=== PATIENT | female | born 1995 | race Caucasian/White ===

== ENCOUNTER 2016-11-09 18:56 | Emergency (ER) | payer MEDICAID ==
[2016-11-09 19:02] VITALS: BP 124/66
[2016-11-09] MEDS ORDERED: Albuterol/Ipratropium 3.0-0.5 MG/3 ML Neb Soln NEB ONE (19:21)
--- NOTE | 2016-11-09 19:27 | EDM.PDOC ---
ED HPI GENERAL MEDICAL PROBLEM - General Chief Complaint: Respiratory Problem Stated Complaint: CHEST PAINS, CAN'T BREATH,FEVER,CHILLS Time Seen by Provider: 11/09/16 19:24 Source of Information: Reports: Patient History Limitations: Reports: No Limitations - History of Present Illness INITIAL COMMENTS - FREE TEXT/NARRATIVE: few weeks h/o cough being Tx with Rx but not better. yesterday had f/c, Upper Chest Pain Score (Numeric/FACES): 7 - Related Data Allergies Allergy/AdvReac Type Severity Reaction Status Date / Time No Known Allergies Allergy Verified 11/09/16 18:59 Home Meds: Home Meds Loratadine [Claritin] 10 mg PO DAILY 08/31/14 [History] Fluticasone/Salmeterol [Advair 250-50 Diskus] 2 puff INH DAILY 11/09/16 [History ] Past Medical History HEENT History: Reports: None Cardiovascular History: Reports: None Respiratory History: Reports: Asthma Gastrointestinal History: Reports: None Genitourinary History: Reports: None EDUCATION REP History: Reports: Musculoskeletal History: Reports: None Neurological History: Reports: None Psychiatric History: Reports: None Endocrine/Metabolic History: Reports: None Hematologic History: Reports: None Immunologic History: Reports: None Oncologic (Cancer) History: Reports: None Dermatologic History: Reports: None - Infectious Disease History Infectious Disease History: Reports: Chicken Pox - Past Surgical History HEENT Surgical History: Reports: Tonsillectomy GI Surgical History: Reports: None Female Surgical History: Reports: None Endocrine Surgical History: Reports: None Musculoskeletal Surgical History: Reports: None Social & Family History - Family History Family Medical History: Noncontributory - Tobacco Use Smoking Status *Q: Never Smoker Second Hand Smoke Exposure: No - Caffeine Use Caffeine Use: Reports: Soda - Alcohol Use Days Per Week of Alcohol Use: 0 - Recreational Drug Use Recreational Drug Use: No ED ROS GENERAL - Review of Systems Review Of Systems: ROS reveals no pertinent complaints other than HPI. ED EXAM, GENERAL - Physical Exam Exam: See Below Exam Limited By: No Limitations General Appearance: Alert, WD/WN, Mild Distress, Other (cough spasms) Ears: Hearing Grossly Normal Throat/Mouth: Normal Voice, No Airway Compromise Head: Atraumatic Neck: Non-Tender, Full Range of Motion Respiratory/Chest: No Respiratory Distress, No Accessory Muscle Use, Decreased Breath Sounds, Rales, Rhonchi, Wheezing. No: Accessory Muscle Use, Retractions , Splinting Cardiovascular: Regular Rate, Rhythm GI/Abdominal: Soft, Non-Tender Neurological: Alert, Oriented, Normal Cognition, Normal Gait, No Motor/Sensory Deficits Psychiatric: Normal Affect, Normal Mood Skin Exam: Warm, Dry Lymphatic: No Adenopathy Course - Vital Signs Last Recorded V/S: Last Vital Signs Temp 36.6 C 11/09/16 19:01 Pulse 104 H 11/09/16 19:37 Resp 20 11/09/16 19:01 BP 124/66 11/09/16 19:01 Pulse Ox 98 11/09/16 19:01 - Orders/Labs/Meds Orders: Active Orders 24 hr Category Date Time Status RT Aerosol Therapy [RC] ASDIRECTED Care 11/09/16 19:22 Active Chest 2V [CR] Urgent Exams 11/09/16 19:21 Taken Meds: Medications Discontinued Medications Generic Name Dose Route Start Last Admin Trade Name Freq PRN Reason Stop Dose Admin Albuterol/Ipratropium 3 ml 11/09/16 19:21 11/09/16 19:28 Duoneb 3.0-0.5 Mg/3 Ml NEB 11/09/16 19:22 3 ml ONETIME ONE Administration Benzonatate 100 mg 11/09/16 19:36 11/09/16 19:39 Tessalon Perles PO 11/09/16 19:37 100 mg ONETIME ONE Administration - Re-Assessments/Exams Free Text/Narrative Re-Assessment/Exam: 11/09/16 20:09 results discussed with Pt. Departure - Departure Time of Disposition: 20:09 Disposition: Home, Self-Care 01 Condition: good Clinical Impression: Bronchospasm with bronchitis, acute - Discharge Information Instructions: Acute Bronchitis, [id number] Forms: ED Department Discharge Additional Instructions: 1) continue home meds and nebs 2) don't sleep flat at night 3) drink lots of liquids 4) follow up at clinic or recheck as needed rx given; tessalon pearles 100mg bid prn x 12 phenergan codeine syrup hs prn x 4oz - My Orders Last 24 Hours: My Active Orders 11/09/16 19:21 Chest 2V [CR] Urgent 11/09/16 19:22 RT Aerosol Therapy [RC] ASDIRECTED - Assessment/Plan Last 24 Hours: My Active Orders 11/09/16 19:21 Chest 2V [CR] Urgent 11/09/16 19:22 RT Aerosol Therapy [RC] ASDIRECTED
[2016-11-09] MEDS ORDERED: Benzonatate 100 MG Cap PO ONE (19:36)
[2016-11-09] MEDS ORDERED: Codeine/Promethazine 10-6.25 MG/5 ML Syrup 5 ML UD Cup ONE (20:12)
[2016-11-09] MEDS ORDERED: Codeine/Promethazine 10-6.25 MG/5 ML Syrup 5 ML UD Cup PO ONE (20:12)
== END 2016-11-09 20:16 | disposition home or self-care (01) ==
LOC: DL.ED 18:56
DX: J20.9 Acute bronchitis, unspecified (principal); Z79.899 Other long term (current) drug therapy; J45.909 Unspecified asthma, uncomplicated; Z98.890 Other specified postprocedural states
CPT/HCPCS: 71020; 87804; 94640; 99283; A9270

== ENCOUNTER 2019-04-04 12:12 | Emergency (ER) | payer MEDICAID ==
[2019-04-04] MEDS: Sodium Chloride 0.9% 1,000 ML IV ONE (13:48)
[2019-04-04] MEDS: Sodium Chloride 0.9% 10 ML Syringe FLUSH PRN (13:48)
[2019-04-04 14:12] LABS: ANION GAP 12.5; CHLORIDE,CL 103 mmol/L (101-111); SODIUM,NA 137 mmol/L (135-145)
--- NOTE | 2019-04-04 15:16 | CT ---
EXAMINATION: Head wo Cont SEX: Female AGE: 24 years CLINICAL HISTORY: 24-year-old female expressing severe headache. No known hypertension or trauma this nonsmoker. SCAN TECHNIQUE: Volume acquisition of data from an unenhanced CT scan of the head and brain obtained with the patient lying supine on the Siemens multislice scanner [place], [place]. All data archived in the PACS system for storage, reformatting axial/sagittal/coronal planes and study (bone/brain windows). INTERPRETATION: 1. Uniformly thick bony calvarium. Symmetric clear pneumatization of the paranasal and mastoid sinuses. 2. Dense anterior interhemispheric midline falcine calcification between the frontal lobes and symmetric normal choroid plexus. 3. Symmetric normal reno-white matter pattern with underlying mirror-image normal ventricles. No hydrocephalus. 4. No supratentorial or posterior fossa mass lesion. Cerebellum and brainstem unremarkable. 5. No focal areas of ischemic infarct or signs of encephalomalacia. 6. No acute intracerebral/intraventricular/subarachnoid bleed and no abnormal extracerebral/intracranial epidural/subdural hematoma. CONCLUSION: Negative unenhanced CT scan head and brain. Sinuses are clear.
[2019-04-04] MEDS: Ketorolac 30 MG/ML SDV IVPUSH ONE (15:18)
--- NOTE | 2019-04-04 15:59 | EDM.PDOC ---
ED HPI GENERAL MEDICAL PROBLEM - General Chief Complaint: Headache Stated Complaint: MIGRAINE Time Seen by Provider: 04/04/19 12:30 Source of Information: Reports: Patient, RN, RN Notes Reviewed History Limitations: Reports: No Limitations - History of Present Illness INITIAL COMMENTS - FREE TEXT/NARRATIVE: Patient presents to ER with complaint of headache since Wednesday, States she has not been able to get rid of this headache. Normally she is able to. She has been using Ibuprofen. States she has tension headaches and this is the worst headache she has had. States she has never had a head CT. She has nausea and vomiting. No diarrhea, fever or chills. Onset: Gradual Duration: Constant Location: Reports: Head Quality: Reports: Ache Severity: Severe Improves with: Reports: None Worsens with: Reports: None Associated Symptoms: Reports: No Other Symptoms Headache Pain Score (Numeric/FACES): 6 - Related Data Allergies Allergy/AdvReac Type Severity Reaction Status Date / Time No Known Allergies Allergy Verified 04/04/19 12:36 Home Meds: Home Meds Loratadine [Claritin] 10 mg PO DAILY 08/31/14 [History] Fluticasone/Salmeterol [Advair 250-50 Diskus] 2 puff INH DAILY 11/09/16 [History ] Albuterol [Ventolin HFA] 2 puff PO Q6HR PRN 04/04/19 [History] Past Medical History HEENT History: Reports: None Cardiovascular History: Reports: None Respiratory History: Reports: Asthma Gastrointestinal History: Reports: None Genitourinary History: Reports: None [employer] History: Reports: Musculoskeletal History: Reports: None Neurological History: Reports: Migraines Psychiatric History: Reports: None Endocrine/Metabolic History: Reports: None Hematologic History: Reports: None Immunologic History: Reports: None Oncologic (Cancer) History: Reports: None Dermatologic History: Reports: None - Infectious Disease History Infectious Disease History: Reports: Chicken Pox - Past Surgical History HEENT Surgical History: Reports: Tonsillectomy GI Surgical History: Reports: None Female Surgical History: Reports: None Endocrine Surgical History: Reports: None Musculoskeletal Surgical History: Reports: None Social & Family History - Family History Family Medical History: Noncontributory - Tobacco Use Smoking Status *Q: Never Smoker Second Hand Smoke Exposure: No - Caffeine Use Caffeine Use: Reports: Soda - Recreational Drug Use Recreational Drug Use: No ED ROS GENERAL - Review of Systems Review Of Systems: ROS reveals no pertinent complaints other than HPI. - Physical Exam Exam: See Below Exam Limited By: No Limitations General Appearance: Moderate Distress, Other (tearful) Eye Exam: Bilateral Eye: EOMI, Normal Inspection, PERRL Ears: Normal External Exam, Normal Canal, Hearing Grossly Normal, Normal TMs Nose: Normal Inspection, Normal Mucosa, No Blood Throat/Mouth: Normal Inspection, Normal Lips, Normal Teeth, Normal Gums, Normal Oropharynx, Normal Voice, No Airway Compromise Head Exam: Atraumatic, Normocephalic Neck: Tender Lateral Respiratory/Chest: No Respiratory Distress, Lungs Clear, Normal Breath Sounds, No Accessory Muscle Use, Chest Non-Tender Cardiovascular: Normal Peripheral Pulses, Regular Rate, Rhythm, No Edema, No Gallop, No JVD, No Murmur, No Rub (Female) Exam: Deferred Rectal (Female) Exam: Deferred Neuro Exam (Abbreviated): Alert, Oriented, CN II-XII Intact, Normal Cognition, Normal Gait, Normal Reflexes, No Motor/Sensory Deficits Back Exam: Normal Inspection, Full Range of Motion, NT Extremities: Normal Inspection, Normal Range of Motion, Non-Tender, No Pedal Edema, Normal Capillary Refill Psychiatric: Anxious, Tearful Skin Exam: Warm, Dry, Intact, Normal Color, No Rash Course - Vital Signs Last Recorded V/S: Last Vital Signs Temp 98.7 F 04/04/19 15:54 Pulse 80 04/04/19 16:27 Resp 20 04/04/19 16:27 BP 120/66 04/04/19 16:27 Pulse Ox 100 04/04/19 16:27 - Orders/Labs/Meds Orders: Active Orders 24 hr Category Date Time Status Peripheral IV Care [RC] . DIRECTED Care 04/04/19 13:37 Active CULTURE URINE [RM] Stat Lab 04/04/19 15:48 Received Orphenadrine [Norflex] Med 04/04/19 14:30 Active 60 mg IM Q12H Sodium Chloride 0.9% [Saline Flush] Med 04/04/19 13:37 Active 10 ml FLUSH ASDIRECTED PRN Peripheral IV Insertion Adult [OM.PC] Stat Oth 04/04/19 13:36 Ordered Medication Orders Orphenadrine Citrate (Norflex) 60 mg IM Q12H [facility] Last Admin: 04/04/19 15:17 Dose: 60 mg Sodium Chloride (Saline Flush) 10 ml FLUSH ASDIRECTED PRN PRN Reason: Keep Vein Open Last Admin: 04/04/19 13:48 Dose: 10 ml Labs: Laboratory Tests 04/04/19 04/04/19 04/04/19 Range/Units 13:42 13:42 13:42 WBC 8.2 (5.0-10.0) 10^3/uL RBC 4.47 (4.2-5.4) 10^6/uL Hgb 13.8 D (12.0-16.0) g/dL Hct 39.9 (37.0-47.0) % MCV 89.3 D (80-100) fL MCH 30.9 (27.0-34.0) pg MCHC 34.6 (33.0-35.0) g/dL Plt Count 233 (150-450) 10^3/uL Neut % (Auto) 70.9 (42.2-75.2) % Lymph % (Auto) 22.0 (20.5-50.1) % [place] % (Auto) 6.3 (2-8) % Eos % (Auto) 0.6 L (1.0-3.0) % Baso % (Auto) 0.2 (0.0-1.0) % Sodium 137 (135-145) mmol/L Potassium 3.5 L (3.6-5.0) mmol/L Chloride 103 (101-111) mmol/L Carbon Dioxide 25.0 (21.0-31.0) mmol/L Anion Gap 12.5 BUN 11 (7-18) mg/dL Creatinine 0.7 (0.6-1.3) mg/dL Est Cr Clr Drug Dosing 131.70 mL/min Estimated GFR (MDRD) > 60 BUN/Creatinine Ratio 15.71 Glucose 123 H (74-105) mg/dL Calcium 9.1 (8.4-10.2) mg/dl Total Bilirubin 1.0 (0.2-1.0) mg/dL AST 21 (10-42) IU/L ALT 28 (10-60) IU/L Alkaline Phosphatase 57 (42-121) IU/L Total Protein 7.3 (6.7-8.2) g/dl Albumin 4.2 (3.2-5.5) g/dl Globulin 3.1 Albumin/Globulin Ratio 1.35 HCG, Qual Negative Urine Color (YELLOW) Urine Appearance (CLEAR) Urine pH (5.0-9.0) Ur Specific [place] (1.005-1.030) Urine Protein (NEGATIVE) Urine Glucose (UA) (NEGATIVE) Urine Ketones (NEGATIVE) Urine Occult Blood (NEGATIVE) Urine Nitrite (NEGATIVE) Urine Bilirubin (NEGATIVE) Urine Urobilinogen (0.2-1.0) mg/dL Ur Leukocyte Esterase (NEGATIVE) Urine RBC /HPF Urine WBC (0-5/HPF) /HPF Ur Epithelial Cells (NOT SEEN) /HPF Amorphous Sediment (NOT SEEN) /HPF Urine Bacteria (0-FEW/HPF) /HPF Urine Mucus (NOT SEEN) /LPF 04/04/19 Range/Units 15:48 WBC (5.0-10.0) 10^3/uL RBC (4.2-5.4) 10^6/uL Hgb (12.0-16.0) g/dL Hct (37.0-47.0) % MCV (80-100) fL MCH (27.0-34.0) pg MCHC (33.0-35.0) g/dL Plt Count (150-450) 10^3/uL Neut % (Auto) (42.2-75.2) % Lymph % (Auto) (20.5-50.1) % [place] % (Auto) (2-8) % Eos % (Auto) (1.0-3.0) % Baso % (Auto) (0.0-1.0) % Sodium (135-145) mmol/L Potassium (3.6-5.0) mmol/L Chloride (101-111) mmol/L Carbon Dioxide (21.0-31.0) mmol/L Anion Gap BUN (7-18) mg/dL Creatinine (0.6-1.3) mg/dL Est Cr Clr Drug Dosing mL/min Estimated GFR (MDRD) BUN/Creatinine Ratio Glucose (74-105) mg/dL Calcium (8.4-10.2) mg/dl Total Bilirubin (0.2-1.0) mg/dL AST (10-42) IU/L ALT (10-60) IU/L Alkaline Phosphatase (42-121) IU/L Total Protein (6.7-8.2) g/dl Albumin (3.2-5.5) g/dl Globulin Albumin/Globulin Ratio HCG, Qual Urine Color Yellow (YELLOW) Urine Appearance Slightly cloudy (CLEAR) Urine pH 7.0 (5.0-9.0) Ur Specific [place] 1.020 (1.005-1.030) Urine Protein Negative (NEGATIVE) Urine Glucose (UA) Negative (NEGATIVE) Urine Ketones Trace H (NEGATIVE) Urine Occult Blood Trace-intact H (NEGATIVE) Urine Nitrite Negative (NEGATIVE) Urine Bilirubin Negative (NEGATIVE) Urine Urobilinogen 0.2 (0.2-1.0) mg/dL Ur Leukocyte Esterase Moderate H (NEGATIVE) Urine RBC 5-10 H /HPF Urine WBC 50-75 H (0-5/HPF) /HPF Ur Epithelial Cells Many H (NOT SEEN) /HPF Amorphous Sediment Few (NOT SEEN) /HPF Urine Bacteria Moderate H (0-FEW/HPF) /HPF Urine Mucus Rare (NOT SEEN) /LPF Meds: Medications Generic Name Dose Route Start Last Admin Trade Name Freq PRN Reason Stop Dose Admin Orphenadrine Citrate 60 mg 04/04/19 14:30 04/04/19 15:17 Norflex IM 60 mg Q12H YASMEEN Administration Sodium Chloride 10 ml 04/04/19 13:37 04/04/19 13:48 Saline Flush FLUSH 10 ml ASDIRECTED PRN Administration Keep Vein Open Discontinued Medications Generic Name Dose Route Start Last Admin Trade Name Freq PRN Reason Stop Dose Admin Butorphanol Tartrate 2 mg 04/04/19 16:08 04/04/19 16:19 Stadol IVPUSH 04/04/19 16:09 2 mg ONETIME ONE Administration Sodium Chloride 1,000 mls @ 999 mls/hr 04/04/19 13:37 04/04/19 13:48 Normal Saline IV 04/04/19 14:37 999 mls/hr .BOLUS ONE Administration Ketorolac Tromethamine 30 mg 04/04/19 14:28 04/04/19 15:18 Toradol IVPUSH 04/04/19 14:29 30 mg ONETIME ONE Administration - Radiology Interpretation Free Text/Narrative:: Head CT wo contrast: Negative exam See rad report Departure - Departure Time of Disposition: 16:59 Disposition: Home, Self-Care 01 Condition: Fair Clinical Impression: Tension-type headache Urinary tract infection Qualifiers: Urinary tract infection type: site unspecified Hematuria presence: without hematuria Qualified Code(s): N39.0 - Urinary tract infection, site not specified - Discharge Information *PRESCRIPTION DRUG MONITORING PROGRAM REVIEWED*: No *COPY OF PRESCRIPTION DRUG MONITORING REPORT IN PATIENT ROGE: No Instructions: Tension Headache, Adult, [id number], Urinary Tract Infection, Adult, [id number] Forms: ED Department Discharge Additional Instructions: Drink plenty of fluids (water and cranberry juice) Continue using ibuprofen as directed for headaches/pain RX: Flexeril (cyclobenzaprine)Do not Drive while taking this medication, Macrobid Follow up with your primary care facility with any further problems Rest - My Orders Last 24 Hours: My Active Orders 04/04/19 13:36 Peripheral IV Insertion Adult [OM.PC] Stat 04/04/19 13:37 Peripheral IV Care [RC] . DIRECTED Sodium Chloride 0.9% [Saline Flush] 10 ml FLUSH ASDIRECTED PRN 04/04/19 14:30 Orphenadrine [Norflex] 60 mg IM Q12H 04/04/19 15:48 CULTURE URINE [RM] Stat - Assessment/Plan Last 24 Hours: My Active Orders 04/04/19 13:36 Peripheral IV Insertion Adult [OM.PC] Stat 04/04/19 13:37 Peripheral IV Care [RC] . DIRECTED Sodium Chloride 0.9% [Saline Flush] 10 ml FLUSH ASDIRECTED PRN 04/04/19 14:30 Orphenadrine [Norflex] 60 mg IM Q12H 04/04/19 15:48 CULTURE URINE [RM] Stat
[2019-04-04] MEDS: Butorphanol 2 MG/ML SDV IVPUSH ONE (16:19)
[2019-04-04 17:21] VITALS: BP 117/65; PULSE 78
== END 2019-04-04 17:15 | disposition home or self-care (01) ==
LOC: DL.ED 12:12
DX: G44.209 Tension-type headache, unspecified, not intractable (principal); N39.0 Urinary tract infection, site not specified; J45.909 Unspecified asthma, uncomplicated; Z79.51 Long term (current) use of inhaled steroids
CPT/HCPCS: 36415; 70450; 80053; 81001; 84703; 85025; 87086; 96361; 96372; 96374; 96375; 99284-25; J0595; J1885; J2360; J7030

== ENCOUNTER 2019-08-07 19:23 | Emergency (ER) | payer MEDICAID, OTHER ==
[2019-08-07 19:40] VITALS: BP 119/74; PULSE 78
[2019-08-07] MEDS ORDERED: Metoclopramide 10 MG/2 ML SDV IVPUSH ONE (19:59)
[2019-08-07] MEDS ORDERED: Ketorolac 30 MG/ML SDV IVPUSH ONE (19:59)
[2019-08-07] MEDS ORDERED: diphenhydrAMINE 50 MG/ML SDV IVPUSH ONE (19:59)
[2019-08-07] MEDS ORDERED: Sodium Chloride 0.9% 10 ML Syringe FLUSH PRN (19:59)
[2019-08-07] MEDS ORDERED: Lactated Ringers 1,000 ML IV ONE (20:00)
--- NOTE | 2019-08-07 20:08 | EDM.PDOC ---
ED HPI GENERAL MEDICAL PROBLEM - General Chief Complaint: Headache Stated Complaint: SEVERE MIGRANE Time Seen by Provider: 08/07/19 20:05 Source of Information: Reports: Patient History Limitations: Reports: No Limitations - History of Present Illness INITIAL COMMENTS - FREE TEXT/NARRATIVE: patient comes emergency department today with complaints of a migraine. This is a very typical migraine for her but she has not had any since March. This is not the worst migraine. She has a burning pounding sensation on the left side of her head. She complains of photophobia and phonophobia. No bowel disturbances. No fever no chills. No recent falls or head injuries or neck pain. She has tried to take something for her headache but she continues to vomit she can't keep anything down. This is a very typical migraine for her. No change in the functionality or sensation of her upper or lower extremities. Headache Pain Score (Numeric/FACES): 8 - Related Data Allergies Allergy/AdvReac Type Severity Reaction Status Date / Time No Known Allergies Allergy Verified 08/07/19 19:40 Home Meds: Home Meds Loratadine [Claritin] 10 mg PO DAILY 08/31/14 [History] Fluticasone/Salmeterol [Advair 250-50 Diskus] 2 puff INH DAILY 11/09/16 [History ] Albuterol [Ventolin HFA] 2 puff PO Q6HR PRN 04/04/19 [History] Past Medical History HEENT History: Reports: None Cardiovascular History: Reports: None Respiratory History: Reports: Asthma Gastrointestinal History: Reports: None Genitourinary History: Reports: None [employer] MAN History: Reports: Musculoskeletal History: Reports: None Neurological History: Reports: Migraines Psychiatric History: Reports: None Endocrine/Metabolic History: Reports: None Hematologic History: Reports: None Immunologic History: Reports: None Oncologic (Cancer) History: Reports: None Dermatologic History: Reports: None - Infectious Disease History Infectious Disease History: Reports: Chicken Pox - Past Surgical History HEENT Surgical History: Reports: Tonsillectomy GI Surgical History: Reports: None Female Surgical History: Reports: None Endocrine Surgical History: Reports: None Musculoskeletal Surgical History: Reports: None Social & Family History - Family History Family Medical History: Noncontributory - Tobacco Use Smoking Status *Q: Never Smoker Second Hand Smoke Exposure: No - Caffeine Use Caffeine Use: Reports: Soda - Recreational Drug Use Recreational Drug Use: No ED ROS GENERAL - Review of Systems Review Of Systems: Comprehensive ROS is negative, except as noted in HPI. - Physical Exam Exam: See Below Exam Limited By: No Limitations General Appearance: Alert, WD/WN, No Apparent Distress Eye Exam: Bilateral Eye: EOMI, Normal Inspection, PERRL Ears: Normal External Exam, Normal Canal, Normal TMs Nose: Normal Inspection, Normal Mucosa Throat/Mouth: Normal Inspection, Normal Lips, Normal Oropharynx Head Exam: Atraumatic, Normocephalic Neck: Normal Inspection, Supple, Non-Tender Respiratory/Chest: No Respiratory Distress, Lungs Clear, Normal Breath Sounds, No Accessory Muscle Use Cardiovascular: Normal Peripheral Pulses, Regular Rate, Rhythm GI/Abdominal: Normal Bowel Sounds, Soft, Non-Tender Neuro Exam (Abbreviated): Alert, Oriented, CN II-XII Intact, Normal Cognition, Normal Gait, No Motor/Sensory Deficits Back Exam: Normal Inspection Extremities: Normal Inspection, Normal Range of Motion, Non-Tender, No Pedal Edema, Normal Capillary Refill Psychiatric: Normal Affect, Normal Mood Skin Exam: Warm, Dry, Intact, Normal Color, No Rash Course - Vital Signs Last Recorded V/S: Last Vital Signs Temp 36.8 C 08/07/19 19:36 Pulse 78 08/07/19 19:36 Resp 18 08/07/19 19:36 BP 119/74 08/07/19 19:36 Pulse Ox 97 08/07/19 19:36 - Orders/Labs/Meds Orders: Active Orders 24 hr Category Date Time Status Peripheral IV Care [RC] . DIRECTED Care 08/07/19 19:59 Active Sodium Chloride 0.9% [Saline Flush] Med 08/07/19 19:59 Active 10 ml FLUSH ASDIRECTED PRN Peripheral IV Insertion Adult [OM.PC] Stat Oth 08/07/19 19:59 Ordered Medication Orders Sodium Chloride (Saline Flush) 10 ml FLUSH ASDIRECTED PRN PRN Reason: Keep Vein Open Last Admin: 08/07/19 20:19 Dose: 10 ml Meds: Medications Generic Name Dose Route Start Last Admin Trade Name Freq PRN Reason Stop Dose Admin Sodium Chloride 10 ml 08/07/19 19:59 08/07/19 20:19 Saline Flush FLUSH 10 ml ASDIRECTED PRN Administration Keep Vein Open Discontinued Medications Generic Name Dose Route Start Last Admin Trade Name Ernie PRN Reason Stop Dose Admin Diphenhydramine HCl 25 mg 08/07/19 19:59 08/07/19 20:16 Benadryl IVPUSH 08/07/19 20:00 25 mg ONETIME ONE Administration Lactated Ringer's 1,000 mls @ 1,000 mls/hr 08/07/19 20:00 08/07/19 20:12 Ringers, Lactated IV 08/07/19 20:59 1,000 mls/hr .BOLUS ONE Administration Ketorolac Tromethamine 30 mg 08/07/19 19:59 08/07/19 20:18 Toradol IVPUSH 08/07/19 20:00 30 mg ONETIME ONE Administration Metoclopramide HCl 10 mg 08/07/19 19:59 08/07/19 20:13 Reglan IVPUSH 08/07/19 20:00 10 mg ONETIME ONE Administration - Re-Assessments/Exams Free Text/Narrative Re-Assessment/Exam: 08/07/19 20:07 LR 1 L wide open. Benadryl 25 mg IV push. Ketorolac 30 mg IV push. Reglan 10 mg IV push. 08/07/19 21:44 Following the above therapy the patient feels much better. Headache is down to a 2-3. No nausea no vomiting. Neuro exam unchanged from previous. Will discharge home with some phenergan as needed. Rest and symptomatic management she is comfortable with this plan and her questions answered. Departure - Departure Time of Disposition: 21:39 Disposition: Home, Self-Care 01 Clinical Impression: Migraine Qualifiers: Migraine type: unspecified Status migrainosus presence: without status migrainosus Intractability: not intractable Qualified Code(s): G43.909 - Migraine, unspecified, not intractable, without status migrainosus - Discharge Information Instructions: Migraine Headache, [id number], Pain Medicine Instructions, Easy -to-Read Forms: ED Department Discharge Additional Instructions: Home rest as much as possible the next few days. Decrease stimulation from lights sounds and smells. Lots of fluids the next few days. Phenergan 1 tablet every 6 hrs as needed for migraine or nausea. RX given to the patient #12 caution sedation. Return to the ED if new or worsening symptoms. Follow up with PCP in the next 4-6 days if not improving sooner if worse. Sepsis Event Note - Evaluation Sepsis Screening Result: No Definite Risk - Focused Exam Vital Signs: Vital Signs Temp Pulse Resp BP Pulse Ox 08/07/19 19:36 36.8 C 78 18 119/74 97 Date Exam was Performed: 08/07/19 Time Exam was Performed: 21:44 - My Orders Last 24 Hours: My Active Orders 08/07/19 19:59 Peripheral IV Care [RC] . DIRECTED Sodium Chloride 0.9% [Saline Flush] 10 ml FLUSH ASDIRECTED PRN Peripheral IV Insertion Adult [OM.PC] Stat - Assessment/Plan Last 24 Hours: My Active Orders 08/07/19 19:59 Peripheral IV Care [RC] . DIRECTED Sodium Chloride 0.9% [Saline Flush] 10 ml FLUSH ASDIRECTED PRN Peripheral IV Insertion Adult [OM.PC] Stat Assessment:: Migraine Plan: Home rest as much as possible the next few days. Decrease stimulation from lights sounds and smells. Lots of fluids the next few days. Phenergan 1 tablet every 6 hrs as needed for migraine or nausea. RX given to the patient #12 caution sedation. Return to the ED if new or worsening symptoms. Follow up with PCP in the next 4-6 days if not improving sooner if worse.
== END 2019-08-07 21:54 | disposition home or self-care (01) ==
LOC: DL.ED 19:23
DX: G43.909 Migraine, unspecified, not intractable, without status migrainosus (principal); J45.909 Unspecified asthma, uncomplicated; Z79.899 Other long term (current) drug therapy
CPT/HCPCS: 96361; 96374; 96375; 99283; J1200; J1885; J2765; J7120

== ENCOUNTER 2019-10-26 14:19 | Emergency (ER) | payer SELFPAY ==
[2019-10-26 14:27] VITALS: BP 108/63; PULSE 108
[2019-10-26] MEDS ORDERED: Sodium Chloride 0.9% 1,000 ML IV ONE (14:47)
[2019-10-26] MEDS ORDERED: Metoclopramide 10 MG/2 ML SDV IVPUSH ONE (14:55)
--- NOTE | 2019-10-26 15:03 | EDM.PDOC ---
ED HPI GENERAL MEDICAL PROBLEM - General Chief Complaint: Headache Stated Complaint: SEVERE MIGRAINE Time Seen by Provider: 10/26/19 14:50 Source of Information: Reports: Patient History Limitations: Reports: No Limitations - History of Present Illness INITIAL COMMENTS - FREE TEXT/NARRATIVE: This 24 yo female patient reports to the ED with a left sided tension headache that started yesterday. The patient also reports she has been nauseated and vomiting for the past 24 hours. The patient has tried to take Tylenol, but vomited that up within 20 minutes. The patient is currently 12 weeks ( she had an ultrasound at 7 weeks to confirm). The patient has had a history of similar symptoms in the past and has been seen with migraine headaches in the ED. Duration: Day(s):, Constant Location: Reports: Head Quality: Reports: Ache, Sharp Severity: Moderate Improves with: Reports: None Worsens with: Reports: None Context: Reports: Other Associated Symptoms: Reports: Headaches Treatments STONE HAND: Reports: Acetaminophen Left Headache Pain Score (Numeric/FACES): 7 - Related Data Allergies Allergy/AdvReac Type Severity Reaction Status Date / Time No Known Allergies Allergy Verified 08/07/19 19:40 Home Meds: Home Meds Loratadine [Claritin] 10 mg PO DAILY 08/31/14 [History] Fluticasone Propion/Salmeterol [Advair 250-50 Diskus] 2 puff INH DAILY 11/09/16 [History] Albuterol [Ventolin HFA] 2 puff PO Q6HR PRN 04/04/19 [History] Past Medical History HEENT History: Reports: None Cardiovascular History: Reports: None Respiratory History: Reports: Asthma Gastrointestinal History: Reports: None Genitourinary History: Reports: None 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: Musculoskeletal History: Reports: None Neurological History: Reports: Migraines Psychiatric History: Reports: None Endocrine/Metabolic History: Reports: None Hematologic History: Reports: None Immunologic History: Reports: None Oncologic (Cancer) History: Reports: None Dermatologic History: Reports: None - Infectious Disease History Infectious Disease History: Reports: Chicken Pox - Past Surgical History HEENT Surgical History: Reports: Tonsillectomy GI Surgical History: Reports: None Female Surgical History: Reports: None Endocrine Surgical History: Reports: None Musculoskeletal Surgical History: Reports: None Social & Family History - Family History Family Medical History: Noncontributory - Tobacco Use Smoking Status *Q: Never Smoker Second Hand Smoke Exposure: No - Caffeine Use Caffeine Use: Reports: Soda - Recreational Drug Use Recreational Drug Use: No ED ROS GENERAL - Review of Systems Review Of Systems: Comprehensive ROS is negative, except as noted in HPI. - Physical Exam Exam: See Below Exam Limited By: No Limitations General Appearance: Alert, WD/WN, Moderate Distress Eye Exam: Bilateral Eye: EOMI, Normal Inspection, PERRL Ears: Normal External Exam, Normal Canal, Hearing Grossly Normal, Normal TMs Nose: Normal Inspection, Normal Mucosa, No Blood Throat/Mouth: Normal Inspection, Normal Lips, Normal Teeth, Normal Gums, Normal Oropharynx, Normal Voice, No Airway Compromise Head Exam: Atraumatic, Normocephalic Neck: Normal Inspection, Supple, Non-Tender, Full Range of Motion Respiratory/Chest: No Respiratory Distress, Lungs Clear, Normal Breath Sounds, No Accessory Muscle Use, Chest Non-Tender Cardiovascular: Normal Peripheral Pulses, Regular Rate, Rhythm, No Edema, No Gallop, No JVD, No Murmur, No Rub GI/Abdominal: Normal Bowel Sounds, Soft, Non-Tender, No Organomegaly, No Distention, No Abnormal Bruit, No Mass (Female) Exam: Deferred Rectal (Female) Exam: Deferred Neuro Exam (Abbreviated): Alert, Oriented, CN II-XII Intact, Normal Cognition, Normal Gait, Normal Reflexes, No Motor/Sensory Deficits Back Exam: Normal Inspection, Full Range of Motion, NT Extremities: Normal Inspection, Normal Range of Motion, Non-Tender, No Pedal Edema, Normal Capillary Refill Psychiatric: Normal Affect Skin Exam: Warm, Dry, Intact, Normal Color, No Rash Course - Vital Signs Last Recorded V/S: Last Vital Signs Temp 36.4 C 10/26/19 14:22 Pulse 108 H 10/26/19 14:22 Resp 18 10/26/19 14:22 BP 108/63 10/26/19 14:22 Pulse Ox 98 10/26/19 14:22 - Orders/Labs/Meds Orders: Active Orders 24 hr Category Date Time Status UA RFX EDDIE AND CULT IF INDIC [URIN] Urgent Lab 10/26/19 14:47 Stop Req Labs: Laboratory Tests 10/26/19 10/26/19 Range/Units 14:58 14:58 WBC 9.2 (5.0-10.0) 10^3/uL RBC 4.24 (4.2-5.4) 10^6/uL Hgb 13.0 (12.0-16.0) g/dL Hct 36.7 L (37.0-47.0) % MCV 86.6 (80-100) fL MCH 30.7 (27.0-34.0) pg MCHC 35.4 H (33.0-35.0) g/dL Plt Count 246 (150-450) 10^3/uL Neut % (Auto) 78.9 H (42.2-75.2) % Lymph % (Auto) 15.9 L (20.5-50.1) % [place] % (Auto) 4.9 (2-8) % Eos % (Auto) 0.1 L (1.0-3.0) % Baso % (Auto) 0.2 (0.0-1.0) % Sodium 137 (136-145) mmol/L Potassium 3.6 (3.5-5.1) mmol/L Chloride 102 (98-107) mmol/L Carbon Dioxide 24 (21-32) mmol/L Anion Gap 14.6 H (7-13) mEq/L BUN 7 (7-18) mg/dL Creatinine 0.71 (0.55-1.02) mg/dL Est Cr Clr Drug Dosing 129.84 mL/min Estimated GFR (MDRD) > 60 BUN/Creatinine Ratio 9.9 (No establ ref range) Glucose 85 (74-99) mg/dL Calcium 9.3 (8.5-10.1) mg/dL Total Bilirubin 0.5 (0.2-1.0) mg/dL AST 16 (15-37) U/L ALT 32 (14-59) U/L Alkaline Phosphatase 63 (46-116) U/L Total Protein 7.2 (6.4-8.2) g/dL Albumin 3.6 (3.4-5.0) g/dL Globulin 3.6 Albumin/Globulin Ratio 1.0 Meds: Medications Discontinued Medications Generic Name Dose Route Start Last Admin Trade Name Freq PRN Reason Stop Dose Admin Acetaminophen 480 mg 10/26/19 15:36 10/26/19 15:47 Tylenol Solution PO 10/26/19 15:37 480 mg ONETIME ONE Administration Sodium Chloride 1,000 mls @ 999 mls/hr 10/26/19 14:47 10/26/19 15:02 Normal Saline IV 10/26/19 15:47 999 mls/hr .BOLUS ONE Administration Metoclopramide HCl 10 mg 10/26/19 14:55 10/26/19 15:02 Reglan IVPUSH 10/26/19 14:56 10 mg ONETIME ONE Administration Departure - Departure Time of Disposition: 16:25 Disposition: Home, Self-Care 01 Condition: Fair Clinical Impression: Migraine headache Qualifiers: Migraine type: unspecified Status migrainosus presence: without status migrainosus Intractability: not intractable Qualified Code(s): G43.909 - Migraine, unspecified, not intractable, without status migrainosus Qualifiers: Weeks of gestation: 12 weeks Qualified Code(s): Z3A.12 - 12 weeks gestation of - Discharge Information *PRESCRIPTION DRUG MONITORING PROGRAM REVIEWED*: Not Applicable *COPY OF PRESCRIPTION DRUG MONITORING REPORT IN PATIENT ROGE: Not Applicable Instructions: Recurrent Migraine Headache, Maxd-om-Munu Forms: ED Department Discharge Care Plan Goals: The patient was advised of the examination and lab results during the visit. The patient was given a liter of IV fluid and IV Reglan while in the ED. The patient was encouraged to increased her fluid intake with small frequent sips of fluids. If the patient has any additional symptoms or concerns, the patient should either return to the emergency department or visit her primary care facility. Sepsis Event Note - Evaluation Sepsis Screening Result: No Definite Risk - Focused Exam Vital Signs: Vital Signs Temp Pulse Resp BP Pulse Ox 10/26/19 14:22 36.4 C 108 H 18 108/63 98 Date Exam was Performed: 10/26/19 Time Exam was Performed: 16:25 - My Orders Last 24 Hours: My Active Orders 10/26/19 14:47 UA RFX EDDIE AND CULT IF INDIC [URIN] Urgent - Assessment/Plan Last 24 Hours: My Active Orders 10/26/19 14:47 UA RFX EDDIE AND CULT IF INDIC [URIN] Urgent
[2019-10-26 15:21] LABS: ANION GAP 14.6 mEq/L (7-13); CHLORIDE,CL 102 mmol/L (98-107); SODIUM,NA 137 mmol/L (136-145)
[2019-10-26] MEDS ORDERED: Acetaminophen Soln 160 MG/5 ML UD Cup PO ONE (15:36)
== END 2019-10-26 16:32 | disposition home or self-care (01) ==
LOC: DL.ED 14:19
DX: O99.351 Diseases of the nervous system complicating pregnancy, first trimester (principal); G43.909 Migraine, unspecified, not intractable, without status migrainosus; O99.511 Diseases of the respiratory system complicating pregnancy, first trimester; J45.909 Unspecified asthma, uncomplicated; Z3A.12 12 weeks gestation of pregnancy
CPT/HCPCS: 36415; 80053; 85025; 96361; 96374; 99284; A9270; J2765; J7030; 99283

== ENCOUNTER 2020-04-19 16:34 | Inpatient (IN) | payer MEDICAID ==
[2020-04-19] MEDS ORDERED: Lidocaine 1% 30 ML SDV INJECT PRN (17:44)
[2020-04-19] MEDS ORDERED: Sodium Chloride 0.9% 10 ML Syringe FLUSH PRN (17:44)
[2020-04-19] MEDS ORDERED: Tranexamic Acid 1,000 MG in Sodium Chloride 0.9% 100 ML IV PRN (17:44)
[2020-04-19] MEDS ORDERED: Carboprost Tromethamine 250 MCG/1 ML Amp IM PRN (17:44)
[2020-04-19] MEDS ORDERED: Misoprostol 400 MCG (4 X 100 MCG TAB) RECTAL PRN (17:44)
[2020-04-19] MEDS ORDERED: Acetaminophen 325 MG Tab PO PRN (17:44)
[2020-04-19] MEDS ORDERED: Methylergonovine 0.2 MG/1 ML Amp IM PRN (17:44)
[2020-04-19] MEDS ORDERED: Ondansetron 4 MG/2 ML SDV IVPUSH PRN (17:44)
[2020-04-19] MEDS ORDERED: Lactated Ringers 1,000 ML IV ONE (17:44)
[2020-04-19] MEDS ORDERED: Penicillin G Potassium 5 MILLUNITS in Sodium Chloride 0.9% 100 ML IV ONE (17:44)
[2020-04-19] MEDS ORDERED: Oxytocin/Normal Saline 30 UNIT/500 ML BAG IV SCH ×2 (17:45)
--- NOTE | 2020-04-19 17:56 | PCM.LDHP ---
<Yun Aguilar R - Last Filed: 04/19/20 17:51> L&D History of Present Illness - General Date of Service: 04/19/20 Admit Problem/Dx: Patient Status Order with Admit Dx/Problem 04/19/20 17:44 Patient Status [ADT] Routine Admission Diagnosis/Problem Admission Diagnosis/Problem Spontaneous rupture of amniotic membranes Source of Information: Patient History Limitations: Reports: No Limitations - History of Present Illness Introduction:: Debbie presents to the labor and delivery unit for evaluation with concerns of SROM. She reports she felt a big gush of fluid at approximately 1530 today 04/19/2020. She has had continued leaking since then. She has not felt any contractions yet. She did have vaginal bleeding after being checked yesterday but none today. She feels baby move. She denies any headache, fevers, chills, cough, SOB, Nausea, vomiting, bowel or bladder problems. She had not had any RUQ or visual changes and minimal swelling. To note her previous was approximately 6.5 years ago and delivery was complicated by need for vacuum delivery due to stress and then by postp artum hemorrhage requiring packing and transfer to higher level of care. She is GBS+ Associated Symptoms: Reports: vaginal fluid, moderate amount - Related Data Allergies/Adverse Reactions: Allergies Allergy/AdvReac Type Severity Reaction Status Date / Time No Known Allergies Allergy Verified 04/19/20 17:15 Home Medications: Home Meds Loratadine [Claritin] 10 mg PO DAILY 08/31/14 [History] Fluticasone Propion/Salmeterol [Advair 250-50 Diskus] 2 puff INH DAILY 11/09/16 [History] Albuterol [Ventolin HFA] 2 puff PO Q6HR PRN 04/04/19 [History] Pnv No.95/Ferrous Fum/Folic AC [ Vitamins Tablet] 1 tab PO DAILY 02/10/20 [History] Past Medical History HEENT History: Reports: None Cardiovascular History: Reports: None Respiratory History: Reports: Asthma Gastrointestinal History: Reports: None Genitourinary History: Reports: None 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: , 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 , 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 , 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 (See Below) Other OB/BYN History: postpartu hemorrhage with first delivery Musculoskeletal History: Reports: Other (See Below) Other Musculoskeletal History: degenerative disc disease, lateral epicondylitis of left elbow Neurological History: Reports: Migraines Psychiatric History: Reports: None Endocrine/Metabolic History: Reports: None Hematologic History: Reports: None Immunologic History: Reports: None Oncologic (Cancer) History: Reports: None Dermatologic History: Reports: None - Infectious Disease History Infectious Disease History: Reports: Chicken Pox - Past Surgical History HEENT Surgical History: Reports: Adenoidectomy, Tonsillectomy GI Surgical History: Reports: None Female Surgical History: Reports: None Endocrine Surgical History: Reports: None Musculoskeletal Surgical History: Reports: None Social & Family History - Family History Family Medical History: Noncontributory - Caffeine Use Caffeine Use: Reports: Soda H&P Review of Systems - Review of Systems: Review Of Systems: See Below General: Reports: No Symptoms HEENT: Reports: No Symptoms Pulmonary: Reports: No Symptoms Cardiovascular: Reports: No Symptoms Gastrointestinal: Reports: No Symptoms Genitourinary: Reports: No Symptoms Musculoskeletal: Reports: No Symptoms Skin: Reports: No Symptoms Psychiatric: Reports: No Symptoms Neurological: Reports: No Symptoms Hematologic/Lymphatic: Reports: No Symptoms Immunologic: Reports: No Symptoms L&D Exam - Exam Exam: See Below - Vital Signs Vital Signs: Last Vital Signs Temp 98.0 F 04/19/20 16:43 Pulse 103 H 04/19/20 16:43 Resp 16 04/19/20 16:43 BP 134/77 04/19/20 16:43 Pulse Ox - OB Specific Contraction Duration (sec): 30 Contraction Frequency (min): 2-3 Contraction Intensity: Mild Movement: Active Heart Tones: Present Heart Tones per Min: 140 Heart Rate (FHR) Variability: Moderate (6-25 bmp) Presentation: Vertex - Olsen Score Olsen Score Cervix Position: Posterior Olsen Score Consistency: Soft Olsen Score Effacement: 31-50% Olsen Score Dilation: 3-4 cm Olsen Score Infant's Station: -2 Olsen Score Total: 6 - Exam General: Alert, Oriented HEENT: Conjunctiva Clear, EOMI Lungs: Clear to Auscultation, Normal Respiratory Effort Cardiovascular: Regular Rate, Regular Rhythm GI/Abdominal Exam: Normal Bowel Sounds, Other (gravid) Genitourinary: Normal external exam, Other (pooling noted on vaginal exam) Extremities: Normal Inspection Skin: Warm, Dry - Problem List (1) Spontaneous rupture of amniotic membranes SNOMED Code(s): 589757164 ICD Code: APB3349 - Status: Acute Current Visit: Yes (2) GBS (group B Streptococcus carrier), +RV culture, currently SNOMED Code(s): 8940268060833, 143010089, 1945250698310 ICD Code: O99.820 - STREPTOCOCCUS B CARRIER STATE COMPLICATING Status: Acute Current Visit: Yes (3) History of hemorrhage, currently in third trimester SNOMED Code(s): 126147137, 81052466, 391959215 ICD Code: O09.293 - SUPRVSN OF PREG W POOR REPRODCTV OR OBSTET HX, THIRD TRI Status: Acute Current Visit: Yes (4) Blood type O+ SNOMED Code(s): 391789235 ICD Code: Z67.40 - TYPE O BLOOD, RH POSITIVE Status: Acute Current Visit: Yes (5) Rubella immune SNOMED Code(s): 220824261 ICD Code: Z78.9 - OTHER SPECIFIED HEALTH STATUS Status: Acute Current Visit: Yes Problem List Initiated/Reviewed/Updated: Yes Orders Last 24hrs: Active Orders 24 hr Category Date Time Status Patient Status [ADT] Routine ADT 04/19/20 17:44 Ordered Communication Order [RC] ASDIRECTED Care 04/19/20 17:44 Ordered Heart Tones [RC] PER UNIT ROUTINE Care 04/19/20 17:44 Ordered Notify Provider Vital Signs OB [RC] ASDIRECTED Care 04/19/20 17:44 Ordered Notify Provider [RC] PRN Care 04/19/20 17:44 Ordered Pump Management, Intrathecal [RC] ASDIRECTED Care 04/19/20 17:44 Ordered Up ad Ida [RC] ASDIRECTED Care 04/19/20 17:44 Ordered Vital Signs [RC] PER UNIT ROUTINE Care 04/19/20 17:44 Ordered CBC W/O DIFF,HEMOGRAM [HEME] Routine Lab 04/19/20 17:44 Ordered CORONAVIRUS COVID-19 RAPID [MOLEC] Urgent Lab 04/19/20 17:42 Received FERN TEST [BF] Routine Lab 04/19/20 17:50 Ordered TYPE AND SCREEN [BBK] Routine Lab 04/19/20 17:44 Ordered Acetaminophen [TylenoL] Med 04/19/20 17:44 Ordered 650 mg PO Q4H PRN Carboprost Tromethamine [Hemabate DS] Med 04/19/20 17:44 Ordered 250 mcg IM ASDIRECTED PRN Lactated Ringers @ 125 MLS/HR(1000ml) Med 04/19/20 17:45 Ordered Lactated Ringers [Ringers, Lactated] 1,000 ml IV ASDIRECTED Lactated Ringers [Ringers, Lactated] 1,000 ml Med 04/19/20 17:44 Ordered IV BOLUS Lidocaine 1% [Xylocaine-MPF 1%] Med 04/19/20 17:44 Ordered 30 ml INJECT ASDIRECTED PRN Methylergonovine [Methergine] Med 04/19/20 17:44 Ordered 0.2 mg IM ASDIRECTED PRN Ondansetron [Zofran] Med 04/19/20 17:44 Ordered 4 mg IVPUSH Q4H PRN Oxytocin 30 Units in NS @ 2 MUNITS/MIN(500ml) Med 04/19/20 17:45 Ordered Oxytocin/Normal Saline [Pitocin in NS 30 UNIT/500 ML] 30 unit in 500 ml IV TITRATE Oxytocin 30 Units in NS @ 2 MUNITS/MIN(500ml) Med 04/19/20 17:45 Ordered Oxytocin/Normal Saline [Pitocin in NS 30 UNIT/500 ML] 30 unit in 500 ml IV TITRATE Penicillin G Potassium [Pfizerpen] 3 millunits Med 04/19/20 18:00 Ordered Sodium Chloride 0.9% [Normal Saline] 100 ml IV Q4HR Penicillin G Potassium [Pfizerpen] 5 millunits Med 04/19/20 17:44 Ordered Sodium Chloride 0.9% [Normal Saline] 100 ml IV ONETIME Sodium Chloride 0.9% [Saline Flush] Med 04/19/20 17:44 Ordered 10 ml FLUSH ASDIRECTED PRN Tranexamic Acid [Cyklokapron] 1,000 mg Med 04/19/20 17:44 Ordered Sodium Chloride 0.9% [Normal Saline] 100 ml IV ONETIME miSOPROStoL [Cytotec] Med 04/19/20 17:44 Ordered 800 mcg RECTAL ASDIRECTED PRN Saline Lock Insert [OM.PC] Routine Oth 04/19/20 17:44 Ordered Resuscitation Status Routine Resus Stat 04/19/20 17:44 Ordered Assessment/Plan Comment:: Debbie is a 25 year old that presents at 37w4d history of hemorrhage O+ blood type rubella immune Ferning Positive Plan Rapid Covid type and screen Penicillin for GBS prophylaxis Pitocin for augmentation per unit protocol will have PPH supplies ready and TSA on hand begin routine intrapartum cares E Jeff <Toni Blanco - Last Filed: 04/21/20 11:36> L&D History of Present Illness - General Admit Problem/Dx: Patient Status Order with Admit Dx/Problem 04/19/20 17:44 Patient Status [ADT] Routine Admission Diagnosis/Problem Admission Diagnosis/Problem Spontaneous rupture of amniotic membranes L&D Exam - Vital Signs Vital Signs: Last Vital Signs Temp 97.9 F 04/21/20 08:00 Pulse 76 04/21/20 08:00 Resp 16 04/21/20 08:00 BP 117/68 04/21/20 08:00 Pulse Ox 99 04/21/20 08:00 - Patient Data Lab Results Last 24 hrs: Laboratory Results - last 24 hr 04/21/20 Range/Units 05:38 WBC 9.5 (5.0-10.0) 10^3/uL RBC 3.68 L (4.2-5.4) 10^6/uL Hgb 11.6 L (12.0-16.0) g/dL Hct 37.6 (37.0-47.0) % MCV 102.2 H D (80-100) fL MCH 31.5 (27.0-34.0) pg MCHC 30.9 L (33.0-35.0) g/dL Plt Count 166 (150-450) 10^3/uL Result Diagrams: 04/21/20 05:38 Orders Last 24hrs: Active Orders 24 hr Category Date Time Status Regular Diet [DIET] Diet 04/20/20 Dinner Active Regular Diet [DIET] Diet 04/20/20 Lunch Active Acetaminophen/oxyCODONE [Percocet 325-5 MG] Med 04/20/20 23:36 Active 1 tab PO Q4H PRN Medication Orders Acetaminophen (Tylenol) 650 mg PO Q4H PRN PRN Reason: Pain (Mild 1-3) and fever Last Admin: 04/20/20 19:45 Dose: 650 mg Documented by: GOVIND Acetaminophen (Tylenol) 650 mg PO Q6H PRN PRN Reason: mild pain or fever Benzocaine/Menthol (Dermoplast Pain Relief [place]) 0 gm TOP Q4H PRN PRN Reason: Perineal comfort measures Last Admin: 04/20/20 13:10 Dose: 1 spray Documented by: VADIM Carboprost Tromethamine (Hemabate Ds) 250 mcg IM ASDIRECTED PRN PRN Reason: HEMORRHAGE Docusate Sodium (Colace) 100 mg PO BID PRN PRN Reason: Constipation Fentanyl (Sublimaze) 50 mcg IVPUSH Q1H PRN PRN Reason: Pain Last Admin: 04/20/20 02:48 Dose: 50 mcg Documented by: GOVIND Lactated Ringer's (Ringers, Lactated) 1,000 mls @ 125 mls/hr IV ASDIRECTED YASMEEN Last Admin: 04/20/20 03:40 Dose: 125 mls/hr Documented by: Infusion: 04/20/20 03:40 Dose: 125 mls/hr Documented by: Admin: 04/20/20 03:30 Dose: 125 mls/hr Documented by: Infusion: 04/20/20 03:25 Dose: 125 mls/hr Documented by: Admin: 04/19/20 19:05 Dose: 125 mls/hr Documented by: STEPAN Tranexamic Acid 1,000 mg/ (Sodium Chloride) 110 mls @ 660 mls/hr IV ONETIME PRN PRN Reason: Bleeding Last Admin: 04/20/20 05:41 Dose: 660 mls/hr Documented by: GOVIND Oxytocin/Sodium Chloride (Pitocin In Ns 30 Unit/500 Ml) 30 unit in 500 mls @ 2 mls/hr IV TITRATE YASMEEN; Protocol Last Titration: 04/20/20 07:15 Dose: 0 munits/min, 0 mls/hr Documented by: Titration: 04/20/20 06:38 Dose: 125 munits/min, 125 mls/hr Documented by: Titration: 04/20/20 05:57 Dose: 250 munits/min, 250 mls/hr Documented by: Titration: 04/20/20 05:42 Dose: 500 munits/min, 500 mls/hr Documented by: Titration: 04/20/20 04:57 Dose: 16 munits/min, 16 mls/hr Documented by: Titration: 04/20/20 00:46 Dose: 14 munits/min, 14 mls/hr Documented by: Titration: 04/19/20 23:25 Dose: 12 munits/min, 12 mls/hr Documented by: SYLLMELeah Titration: 04/19/20 22:51 Dose: 10 munits/min, 10 mls/hr Documented by: EMANIMELeah Titration: 04/19/20 22:10 Dose: 8 munits/min, 8 mls/hr Documented by: EMANIMELeah Titration: 04/19/20 21:23 Dose: 6 munits/min, 6 mls/hr Documented by: EMANIMELeah Titration: 04/19/20 20:45 Dose: 4 munits/min, 4 mls/hr Documented by: Admin: 04/19/20 19:50 Dose: 2 munits/min, 2 mls/hr Documented by: STEPAN Oxytocin/Sodium Chloride (Pitocin In Ns 30 Unit/500 Ml) 30 unit in 500 mls @ 2 mls/hr IV TITRATE YASMEEN; Protocol Last Titration: 04/20/20 09:00 Dose: 0 munits/min, 0 mls/hr Documented by: Titration: 04/20/20 08:05 Dose: 50 munits/min, 50 mls/hr Documented by: Admin: 04/20/20 07:15 Dose: 125 munits/min, 125 mls/hr Documented by: VADIM Ibuprofen (Motrin) 800 mg PO Q8H PRN PRN Reason: Mild Pain or Fever Last Admin: 04/20/20 23:05 Dose: 800 mg Documented by: Admin: 04/20/20 14:27 Dose: 800 mg Documented by: VADIM Lidocaine HCl (Xylocaine-Mpf 1%) 30 ml INJECT ASDIRECTED PRN PRN Reason: Perineal Repair Methylergonovine Maleate (Methergine) 0.2 mg IM ASDIRECTED PRN PRN Reason: Hemorrhage Misoprostol (Cytotec) 800 mcg RECTAL ASDIRECTED PRN PRN Reason: Hemorrhage Last Admin: 04/20/20 05:47 Dose: 800 mcg Documented by: GOVIND Ondansetron HCl (Zofran) 4 mg IVPUSH Q4H PRN PRN Reason: Nausea/Vomiting Last Admin: 04/20/20 03:24 Dose: 4 mg Documented by: GOVIND Oxycodone/Acetaminophen (Percocet 325-5 Mg) 1 tab PO Q4H PRN PRN Reason: Pain Last Admin: 04/21/20 11:24 Dose: 1 tab Documented by: Admin: 04/21/20 04:36 Dose: 1 tab Documented by: Admin: 04/20/20 23:42 Dose: 1 tab Documented by: GOVIND Prenmavis Multivit/[place]/Iron/Folic Ac ( Plus Iron) 1 each PO DAILY YASMEEN Last Admin: 04/21/20 08:08 Dose: Not Given Documented by: Admin: 04/20/20 13:12 Dose: Not Given Documented by: Admin: 04/20/20 12:14 Dose: Not Given Documented by: VADIM Simethicone (Simethicone) 80 mg PO Q4H PRN PRN Reason: Gas Sodium Chloride (Saline Flush) 10 ml FLUSH ASDIRECTED PRN PRN Reason: Keep Vein Open Sodium Chloride (Saline Flush) 10 ml FLUSH ASDIRECTED PRN PRN Reason: Keep Vein Open Assessment/Plan Comment:: seen and agreed-DCW
[2020-04-19] MEDS: Lactated Ringers 1,000 ML IV SCH (19:05)
[2020-04-19] MEDS: Penicillin G Potassium 3 MILLUNITS in Sodium Chloride 0.9% 100 ML IV SCH ×2 (19:58→23:02)
--- NOTE | 2020-04-19 20:49 | OBOUT ---
DATE: 04/19/2020 TIME: 1700 to 1720 REASON FOR NST: 1. Intrauterine at 37-4/7 weeks confirmed by 7-week ultrasound. 2. Spontaneous rupture of membranes around 3 p.m. No obvious labor. 3. Group B Streptococcus positive (penicillin given). 4. History of asthma. 5. History of hemorrhage. 6. G4, P1-0-2-1. NST INTERPRETATION: During this time period, heart tone baseline is approximately 145 and at least two 15 x 15 beats per minute accelerations making this strip reactive as well as reassuring. Tocometer reveals no evidence of contraction. Blood pressure 134/77, heart rate 103. The patient feels afebrile. ASSESSMENT: 1. Nonstress test, reactive as well as reassuring. 2. Tocometer without contractions. PLAN: The patient was admitted due to spontaneous rupture of membranes that was grossly ruptured consistent with clear fluid. Penicillin will be started. Pitocin will be started as no evidence of labor at this point in time. For history and physical, please see Yun Pack, PGY3, resident's note. Seen and agreed with her, and for this records were called for, reviewed, and supplemented by patient history, as well as review of systems fully reviewed and felt to be contributory as noted. [facility] /[id number]
[2020-04-20] MEDS ORDERED: fentaNYL 100 MCG/2 ML SDV IVPUSH PRN (02:00)
[2020-04-20] MEDS: Penicillin G Potassium 3 MILLUNITS in Sodium Chloride 0.9% 100 ML IV SCH ×2 (02:50→12:04)
[2020-04-20] MEDS: Lactated Ringers 1,000 ML IV SCH ×2 (03:30→03:40)
[2020-04-20] MEDS ORDERED: fentaNYL 100 MCG/2 ML SDV ONE (03:39)
[2020-04-20] MEDS ORDERED: EPINEPHrine 1 MG/1 ML Amp ONE (03:39)
--- NOTE | 2020-04-20 04:33 | PCM.PRNOTE ---
- Free Text/Narrative Note: Requested to provide analgesia to full term patient in severe pain. Upon entering the room, patient is sitting on edge of bed complaining of severe abdominal/pelvic pain and discomfort. Procedure was discussed with patient including adverse outcomes and expectations. Pt consented to analgesia, SAB/IT. Pt placed into a proper sitting position. Landmarks for SAB/IT were identified and marked. Hands were washed and appropriate PPE was applied. Back was prepped with betadine x3. A sterile, transparent, fenestrated drape was applied. Excess betadine was removed. Using 3 mL of a 1% lidocaine solution, a skin wheel was placed at the L2/L3 interspace. A 24 ga (4 inch) Pencan spinal needle was inserted until positive for CSF. Negative for heme or paresthesias. Injected fentanyl 30 mcg, sufentanil 25 mcg, and 7.5 mg of a 0.75% bupivacaine solution with an epi wash. Pt was placed left lateral tilt position for approximately 20 minutes. There were zero complications or adverse outcomes. Will continue to monitor. Procedure Date & Time: 04/20/20 [id number]
[2020-04-20] MEDS ORDERED: Simethicone 80 MG Tab.Chew PO PRN (06:02)
[2020-04-20] MEDS ORDERED: Benzocaine/Menthol 20%-0.5% Spray 56 GM Canister TOP PRN (06:02)
[2020-04-20] MEDS ORDERED: Acetaminophen 325 MG Tab PO PRN (06:02)
[2020-04-20] MEDS ORDERED: Sodium Chloride 0.9% 10 ML Syringe FLUSH PRN (06:02)
[2020-04-20] MEDS ORDERED: Docusate Sodium 100 MG Cap PO PRN (06:02)
--- NOTE | 2020-04-20 06:11 | PCM.DEL ---
<JeffDotYun R - Last Filed: 04/20/20 06:05> L & D Note - General Info Date of Service: 04/20/20 Mother's Due Date: 05/06/20 - Delivery Note Labor: Spontaneous Delivery Outcome: Livebirth Infant Delivery Method: Spontaneous Vaginal Delivery-Single Delivery Mode: Spontaneous Presentation: Vertex Nuchal Cord: Present Amniotic Fluid Description: Clear Episiotomy Type: None Laceration: None Placenta: Intact, Spontaneous Cord: 3 Vessels Resuscitation Needed: Yes : Suctioned, Bulb Syringe, Stimulated, Warmed Provider: Toni Blanoc Delivery Comments (Free Text/Narrative):: Debbie is now a that presented to the Labor and delivery unit at 37w4d with spontaneous rupture of membranes. Rupture time was 1530 on 04/19/2020 with clear fluid. She is GBS + and was admitted to begin GBS prophylaxis with Pen G and augmentation with pitocin. She progressed to complete without complication and delivered a viable male. Placenta delivered intact shortly after. Pitocin was started, TXA and cytotec were given due to mild oozing and history of hemorrhage. Mild right periurethral lac oozing but hemostatic after pressure. perineum intact. Blood loss approximately 200ml - General Info Date of Service: 04/20/20 Admission Dx/Problem (Free Text): Patient Status Order with Admit Dx/Problem 04/19/20 17:44 Patient Status [ADT] Routine Admission Diagnosis/Problem Admission Diagnosis/Problem Spontaneous rupture of amniotic membranes - Review of Systems General: Reports: No Symptoms HEENT: Reports: No Symptoms Pulmonary: Reports: No Symptoms Cardiovascular: Reports: No Symptoms Gastrointestinal: Reports: No Symptoms Genitourinary: Reports: No Symptoms Musculoskeletal: Reports: No Symptoms Skin: Reports: No Symptoms Neurological: Reports: No Symptoms Psychiatric: Reports: No Symptoms - Patient Data Vitals - Most Recent: Last Vital Signs Temp 97.9 F 04/20/20 04:07 Pulse 77 04/20/20 04:55 Resp 16 04/20/20 04:55 BP 103/53 L 04/20/20 04:55 Pulse Ox 95 04/20/20 04:55 Weight - Most Recent: 94.347 kg Lab Results Last 24 Hours: Laboratory Results - last 24 hr 11/06/20 11/06/20 11/06/20 Range/Units 17:30 17:42 18:42 WBC 9.6 (5.0-10.0) 10^3/uL RBC 3.70 L (4.2-5.4) 10^6/uL Hgb 11.3 L (12.0-16.0) g/dL Hct 33.3 L (37.0-47.0) % MCV 90.0 (80-100) fL MCH 30.5 (27.0-34.0) pg MCHC 33.9 (33.0-35.0) g/dL Plt Count 192 (150-450) 10^3/uL Amniotic Ferning Test Present (NOT SEEN) SARS CoV-2 RNA Rapid UDAY Negative (NEGATIVE) Blood Type Gel Antibody Screen 04/19/20 Range/Units 18:42 WBC (5.0-10.0) 10^3/uL RBC (4.2-5.4) 10^6/uL Hgb (12.0-16.0) g/dL Hct (37.0-47.0) % MCV (80-100) fL MCH (27.0-34.0) pg MCHC (33.0-35.0) g/dL Plt Count (150-450) 10^3/uL Amniotic Ferning Test (NOT SEEN) SARS CoV-2 RNA Rapid UDAY (NEGATIVE) Blood Type O POSITIVE Gel Antibody Screen Negative Med Orders - Current: Current Medications Acetaminophen (Tylenol) 650 mg PO Q4H PRN PRN Reason: Pain (Mild 1-3) and fever Carboprost Tromethamine (Hemabate Ds) 250 mcg IM ASDIRECTED PRN PRN Reason: HEMORRHAGE Fentanyl (Sublimaze) 50 mcg IVPUSH Q1H PRN PRN Reason: Pain Last Admin: 04/20/20 02:48 Dose: 50 mcg Documented by: Lactated Ringer's (Ringers, Lactated) 1,000 mls @ 125 mls/hr IV ASDIRECTED YASMEEN Last Admin: 04/20/20 03:40 Dose: 125 mls/hr Documented by: Tranexamic Acid 1,000 mg/ (Sodium Chloride) 110 mls @ 660 mls/hr IV ONETIME PRN PRN Reason: Bleeding Oxytocin/Sodium Chloride (Pitocin In Ns 30 Unit/500 Ml) 30 unit in 500 mls @ 2 mls/hr IV TITRATE YASMEEN; Protocol Last Titration: 04/20/20 00:46 Dose: 14 munits/min, 14 mls/hr Documented by: Penicillin G Potassium 3 (millunits/ Sodium Chloride) 100 mls @ 200 mls/hr IV Q4HR YASMEEN Last Admin: 04/20/20 02:50 Dose: 200 mls/hr Documented by: Oxytocin/Sodium Chloride (Pitocin In Ns 30 Unit/500 Ml) 30 unit in 500 mls @ 2 mls/hr IV TITRATE YASMEEN; Protocol Lidocaine HCl (Xylocaine-Mpf 1%) 30 ml INJECT ASDIRECTED PRN PRN Reason: Perineal Repair Methylergonovine Maleate (Methergine) 0.2 mg IM ASDIRECTED PRN PRN Reason: Hemorrhage Misoprostol (Cytotec) 800 mcg RECTAL ASDIRECTED PRN PRN Reason: Hemorrhage Ondansetron HCl (Zofran) 4 mg IVPUSH Q4H PRN PRN Reason: Nausea/Vomiting Last Admin: 04/20/20 03:24 Dose: 4 mg Documented by: Sodium Chloride (Saline Flush) 10 ml FLUSH ASDIRECTED PRN PRN Reason: Keep Vein Open Discontinued Medications Epinephrine HCl (Adrenalin) Confirm Administered Dose 1 mg .ROUTE .STK-MED ONE Stop: 04/20/20 03:40 Fentanyl (Sublimaze) Confirm Administered Dose 100 mcg .ROUTE .STK-MED ONE Stop: 04/20/20 03:40 Lactated Ringer's (Ringers, Lactated) 1,000 mls @ 999 mls/hr IV BOLUS ONE Stop: 04/19/20 18:44 Penicillin G Potassium 5 (millunits/ Sodium Chloride) 100 mls @ 200 mls/hr IV ONETIME ONE Stop: 04/19/20 18:13 Last Admin: 04/19/20 19:16 Dose: 200 mls/hr Documented by: Sufentanil Citrate (Sufenta) Confirm Administered Dose 50 mcg .ROUTE .STK-MED ONE Stop: 04/20/20 03:40 - Exam General: Alert, Oriented Lungs: Clear to Auscultation, Normal Respiratory Effort Cardiovascular: Regular Rate, Regular Rhythm GI/Abdominal Exam: Normal Bowel Sounds (Female) Exam: Normal External Exam (mild periurethral lac on the right), Normal Bimanual Exam Back Exam: Normal Inspection Extremities: Normal Inspection Skin: Warm, Dry Psy/Mental Status: Alert - Problem List & Annotations (1) Spontaneous rupture of amniotic membranes SNOMED Code(s): 858521097 Code(s): RYG0442 - Status: Acute Current Visit: Yes (2) GBS (group B Streptococcus carrier), +RV culture, currently SNOMED Code(s): 1965478144173, 529766605, 7661236601047 Code(s): O99.820 - STREPTOCOCCUS B CARRIER STATE COMPLICATING Status: Acute Current Visit: Yes (3) History of hemorrhage, currently in third trimester SNOMED Code(s): 852394269, 82763208, 696485084 Code(s): O09.293 - SUPRVSN OF PREG W POOR REPRODCTV OR OBSTET HX, THIRD TRI Status: Acute Current Visit: Yes (4) Blood type O+ SNOMED Code(s): 244318802 Code(s): Z67.40 - TYPE O BLOOD, RH POSITIVE Status: Acute Current Visit: Yes (5) Rubella immune SNOMED Code(s): 873489771 Code(s): Z78.9 - OTHER SPECIFIED HEALTH STATUS Status: Acute Current Visit: Yes (6) (normal spontaneous vaginal delivery) SNOMED Code(s): 62746556, 077440274 Code(s): O80 - ENCOUNTER FOR FULL-TERM UNCOMPLICATED DELIVERY Status: Acute Current Visit: Yes - Problem List Review Problem List Initiated/Reviewed/Updated: Yes - My Orders Last 24 Hours: My Active Orders 04/19/20 17:44 Patient Status [ADT] Routine Communication Order [RC] ASDIRECTED Notify Provider Vital Signs OB [RC] ASDIRECTED Notify Provider [RC] PRN Pump Management, Intrathecal [RC] ASDIRECTED Up ad Ida [RC] ASDIRECTED Vital Signs [RC] PER UNIT ROUTINE Acetaminophen [TylenoL] 650 mg PO Q4H PRN Carboprost Tromethamine [Hemabate DS] 250 mcg IM ASDIRECTED PRN Lidocaine 1% [Xylocaine-MPF 1%] 30 ml INJECT ASDIRECTED PRN Methylergonovine [Methergine] 0.2 mg IM ASDIRECTED PRN Ondansetron [Zofran] 4 mg IVPUSH Q4H PRN Sodium Chloride 0.9% [Saline Flush] 10 ml FLUSH ASDIRECTED PRN Tranexamic Acid [Cyklokapron] 1,000 mg Sodium Chloride 0.9% [Normal Saline] 100 ml IV ONETIME miSOPROStoL [Cytotec] 800 mcg RECTAL ASDIRECTED PRN Saline Lock Insert [OM.PC] Routine Resuscitation Status Routine 04/19/20 17:45 Lactated Ringers [Ringers, Lactated] 1,000 ml IV ASDIRECTED Oxytocin/Normal Saline [Pitocin in NS 30 UNIT/500 ML] 30 unit in 500 ml IV TITRATE Oxytocin/Normal Saline [Pitocin in NS 30 UNIT/500 ML] 30 unit in 500 ml IV TITRATE 04/19/20 18:00 Penicillin G Potassium [Pfizerpen] 3 millunits Sodium Chloride 0.9% [Normal Saline] 100 ml IV Q4HR 04/20/20 06:02 Up ad Ida [RC] ASDIRECTED CBC W/O DIFF,HEMOGRAM [HEME] Routine Acetaminophen [TylenoL] 650 mg PO Q6H PRN Benzocaine/Menthol [Dermoplast Pain Relief [place]] See Dose Instructions TOP Q4H PRN Docusate Sodium [Colace] 100 mg PO BID PRN Ibuprofen [Motrin] 800 mg PO Q8H PRN Simethicone 80 mg PO Q4H PRN Sodium Chloride 0.9% [Saline Flush] 10 ml FLUSH ASDIRECTED PRN Assess Lochia [WOMSER] Per Unit Routine Assess Uterine Involution [WOMSER] Per Unit Routine Breast Pump [WOMSER] Per Unit Routine Ice Therapy [OM.PC] Per Unit Routine Perineal Care [OM.PC] Per Unit Routine Saline Lock Insert [OM.PC] Urgent Sitz Bath [OM.PC] Per Unit Routine 04/20/20 06:15 Vit with Ca/FA/Iron [ Plus Iron] 1 each PO DAILY 04/20/20 Breakfast Regular Diet [DIET] 04/20/20 Lunch Regular Diet [DIET] 04/20/20 Dinner Regular Diet [DIET] - Plan Plan:: Debbie is a 25 year old at 37w5d now and PPD0 history of hemorrhage O+ blood type rubella immune Plan Rapid Covid negative Penicillin for GBS prophylaxis adequately treated closely monitor for hemorrhage begin routine cares E Pehl <BellaToni - Last Filed: 04/21/20 11:36> - Patient Data Vitals - Most Recent: Last Vital Signs Temp 97.9 F 04/21/20 08:00 Pulse 76 04/21/20 08:00 Resp 16 04/21/20 08:00 BP 117/68 04/21/20 08:00 Pulse Ox 99 04/21/20 08:00 Lab Results Last 24 Hours: Laboratory Results - last 24 hr 04/21/20 Range/Units 05:38 WBC 9.5 (5.0-10.0) 10^3/uL RBC 3.68 L (4.2-5.4) 10^6/uL Hgb 11.6 L (12.0-16.0) g/dL Hct 37.6 (37.0-47.0) % MCV 102.2 H D (80-100) fL MCH 31.5 (27.0-34.0) pg MCHC 30.9 L (33.0-35.0) g/dL Plt Count 166 (150-450) 10^3/uL Med Orders - Current: Current Medications Acetaminophen (Tylenol) 650 mg PO Q4H PRN PRN Reason: Pain (Mild 1-3) and fever Last Admin: 04/20/20 19:45 Dose: 650 mg Documented by: Acetaminophen (Tylenol) 650 mg PO Q6H PRN PRN Reason: mild pain or fever Benzocaine/Menthol (Dermoplast Pain Relief [place]) 0 gm TOP Q4H PRN PRN Reason: Perineal comfort measures Last Admin: 04/20/20 13:10 Dose: 1 spray Documented by: Carboprost Tromethamine (Hemabate Ds) 250 mcg IM ASDIRECTED PRN PRN Reason: HEMORRHAGE Docusate Sodium (Colace) 100 mg PO BID PRN PRN Reason: Constipation Fentanyl (Sublimaze) 50 mcg IVPUSH Q1H PRN PRN Reason: Pain Last Admin: 04/20/20 02:48 Dose: 50 mcg Documented by: Lactated Ringer's (Ringers, Lactated) 1,000 mls @ 125 mls/hr IV ASDIRECTED YASMEEN Last Admin: 04/20/20 03:40 Dose: 125 mls/hr Documented by: Tranexamic Acid 1,000 mg/ (Sodium Chloride) 110 mls @ 660 mls/hr IV ONETIME PRN PRN Reason: Bleeding Last Admin: 04/20/20 05:41 Dose: 660 mls/hr Documented by: Oxytocin/Sodium Chloride (Pitocin In Ns 30 Unit/500 Ml) 30 unit in 500 mls @ 2 mls/hr IV TITRATE YASMEEN; Protocol Last Titration: 04/20/20 07:15 Dose: 0 munits/min, 0 mls/hr Documented by: Oxytocin/Sodium Chloride (Pitocin In Ns 30 Unit/500 Ml) 30 unit in 500 mls @ 2 mls/hr IV TITRATE YASMEEN; Protocol Last Titration: 04/20/20 09:00 Dose: 0 munits/min, 0 mls/hr Documented by: Ibuprofen (Motrin) 800 mg PO Q8H PRN PRN Reason: Mild Pain or Fever Last Admin: 04/20/20 23:05 Dose: 800 mg Documented by: Lidocaine HCl (Xylocaine-Mpf 1%) 30 ml INJECT ASDIRECTED PRN PRN Reason: Perineal Repair Methylergonovine Maleate (Methergine) 0.2 mg IM ASDIRECTED PRN PRN Reason: Hemorrhage Misoprostol (Cytotec) 800 mcg RECTAL ASDIRECTED PRN PRN Reason: Hemorrhage Last Admin: 04/20/20 05:47 Dose: 800 mcg Documented by: Ondansetron HCl (Zofran) 4 mg IVPUSH Q4H PRN PRN Reason: Nausea/Vomiting Last Admin: 04/20/20 03:24 Dose: 4 mg Documented by: Oxycodone/Acetaminophen (Percocet 325-5 Mg) 1 tab PO Q4H PRN PRN Reason: Pain Last Admin: 04/21/20 11:24 Dose: 1 tab Documented by: Prenat Multivit/Carbon/Iron/Folic Ac ( Plus Iron) 1 each PO DAILY YASMEEN Last Admin: 04/21/20 08:08 Dose: Not Given Documented by: Simethicone (Simethicone) 80 mg PO Q4H PRN PRN Reason: Gas Sodium Chloride (Saline Flush) 10 ml FLUSH ASDIRECTED PRN PRN Reason: Keep Vein Open Sodium Chloride (Saline Flush) 10 ml FLUSH ASDIRECTED PRN PRN Reason: Keep Vein Open Discontinued Medications Epinephrine HCl (Adrenalin) Confirm Administered Dose 1 mg .ROUTE .STK-MED ONE Stop: 04/20/20 03:40 Last Admin: 04/20/20 11:56 Dose: Not Given Documented by: Fentanyl (Sublimaze) Confirm Administered Dose 100 mcg .ROUTE .STK-MED ONE Stop: 04/20/20 03:40 Last Admin: 04/20/20 11:56 Dose: Not Given Documented by: Lactated Ringer's (Ringers, Lactated) 1,000 mls @ 999 mls/hr IV BOLUS ONE Stop: 04/19/20 18:44 Last Admin: 04/20/20 11:57 Dose: Not Given Documented by: Penicillin G Potassium 5 (millunits/ Sodium Chloride) 100 mls @ 200 mls/hr IV ONETIME ONE Stop: 04/19/20 18:13 Last Admin: 04/19/20 19:16 Dose: 200 mls/hr Documented by: Penicillin G Potassium 3 (millunits/ Sodium Chloride) 100 mls @ 200 mls/hr IV Q4HR YASMEEN Last Admin: 04/20/20 12:04 Dose: Not Given Documented by: Sufentanil Citrate (Sufenta) Confirm Administered Dose 50 mcg .ROUTE .STK-MED ONE Stop: 04/20/20 03:40 Last Admin: 04/20/20 11:56 Dose: Not Given Documented by: - My Orders Last 24 Hours: My Active Orders 04/20/20 23:36 Acetaminophen/oxyCODONE [Percocet 325-5 MG] 1 tab PO Q4H PRN - Plan Plan:: seen and agreed-DCW
[2020-04-20] MEDS: Prenatal Multivitamin with Calcium/Folic Acid/Iron Tab PO SCH ×3 (12:14→13:12)
[2020-04-20] MEDS: Ibuprofen 800 MG Tab PO PRN ×2 (14:27→23:05)
[2020-04-20] MEDS: Acetaminophen/oxyCODONE 325-5 MG Tab PO PRN (23:42)
[2020-04-21] MEDS: Acetaminophen/oxyCODONE 325-5 MG Tab PO PRN ×3 (04:36→19:44)
[2020-04-21] MEDS: Prenatal Multivitamin with Calcium/Folic Acid/Iron Tab PO SCH (08:08)
--- NOTE | 2020-04-21 11:08 | PCM.SN.2 ---
<Yun Aguilar R - Last Filed: 04/21/20 11:03> - Free Text/Narrative Note: Obstetrics Progress Note Post Day Number 1 Patient: Debbie Admit Date: 04/19/2020 Today's Date: 04/21/2020 Subjective: Debbie is day 1 s/p . She reports her lochia is mild and comparative to an average period. She is pumping breast milk. She has OTC analgesia and percocet . She has been advancing her diet and has good PO intake. Patient denies nausea or vomiting. Patient has been urinating spontaneously. She has had a bowel movement. She has been ambulating. She has no acute concerns. No acute events overnight. Objective: Vitals reviewed General: alert, in no acute distress Lungs: clear to auscultation bilaterally Heart: regular rate and rhythm, normal S1 S2, no murmurs Abdomen: soft, nontender, nondistended, bowel sounds present Uterus: Firm nontender at 1 cm below the umbilicus. Lower extremities are nontender with no edema. Skin: is warm and dry, well perfused no visible lesions Lab Results: O+ Hgb 11.6 Plt 166 RPR: non reactive Rubella: immune GBS: positive adequately treated Hbs: nonreactive Assessment: 25 year old now day 1 s/p . Patient is stable and comfortable, no acute distress. No signs of anemia. Hx of hemorrhage with previous delivery, stable Plan: Encourage ambulation. Continue with advancing routine post cares. Plan for discharge Tomorrow. Yun Aguilar <Toni Blanco - Last Filed: 04/21/20 11:31> - Free Text/Narrative Note: seen and agreed- DCW
[2020-04-21] MEDS: Ibuprofen 800 MG Tab PO PRN ×2 (12:50→21:49)
--- NOTE | 2020-04-22 07:52 | PN ---
DATE: 04/20/2020 SUBJECTIVE: The patient is feeling her contractions. OBJECTIVE: heart tones in the 140s range. Tocometer has been revealing contractions as close as every 1-1/2 to 2 minutes apart. Pitocin is at 14 milliunits per minute. Vaginal exam reveals her to be 4 cm, 60% effaced, -1 station, vertex suspected, and bag of water was felt. This was subsequently artificially ruptured with amnio hook yielding copious amounts of clear fluid. ASSESSMENT AND PLAN: Intrauterine now at 37 and 5/7 weeks with rupture of membranes without labor noted on 04/18/2020 at approximately 3 p.m. GBS positive (penicillin currently being given). G4, P1-0-2-1 with history of asthma and hemorrhage with TXA prepped for as well as hemorrhage cart. PLAN: We will continue Pitocin. Follow clinically and closely at this point in time. The patient understands and agrees with the above treatment plan. [facility] /[id number]
[2020-04-22] MEDS: Prenatal Multivitamin with Calcium/Folic Acid/Iron Tab PO SCH (08:25)
[2020-04-22] MEDS: Ibuprofen 800 MG Tab PO PRN (08:27)
[2020-04-22 08:46] VITALS: BP 118/69; PULSE 95
--- NOTE | 2020-04-22 09:08 | DISCH ---
ADMITTING DIAGNOSES: 1. Intrauterine at 37 and 4/7 weeks, confirmed with 7 weeks ultrasound. 2. Spontaneous rupture of membranes at approximately 3 p.m. on date of admission with rupture of membranes about labor. 3. GBS positive (penicillin given). 4. History of asthma. 5. History of hemorrhage. 6. G4, P1-0-2-1. DISCHARGE DIAGNOSES: 1. Intrauterine at 37 and 5/7 weeks, confirmed with 7 weeks ultrasound, delivered. 2. Spontaneous rupture of membranes at approximately 3 p.m. on date of admission with rupture of membranes about labor. 3. GBS positive (penicillin given). 4. History of asthma. 5. History of hemorrhage. 6. G4, P1-0-2-1. 7. Due to history of hemorrhage, received TXA after cord clamping as well as 800 mcg of Cytotec rectally with EBL 200 mL with delivery. PROCEDURES PERFORMED: NST, Pitocin augmentation, artificial rupture of membranes on 04/19/2020 with spontaneous vaginal delivery on 04/20/2020. HISTORY OF PRESENT ILLNESS: Please see H and P. SUMMARY OF HOSPITAL COURSE: The patient was admitted on above date with above diagnosis, had spontaneous rupture of membranes, confirmed with AmniSure. She underwent Pitocin augmentation as she did not have labor. Penicillin was given for GBS positive status. She did receive an intrathecal. She subsequently went on to have vaginal delivery yielding a male with score of 8 and 8, weighing 7 pounds 8 ounces (3415 g). Due to her history, she was given 1 g of TXA and 800 mcg of Cytotec rectally with an EBL of 200 mL. Please see delivery note for further details. day #1, see progress note. day #2, date of discharge, the patient is tolerating p.o., was ambulating, urinating, passing flatus, requesting discharge. PHYSICAL EXAMINATION: Vital Signs: Last set of vitals, temperature 97.9, heart rate 83, blood pressure 115/69, respiratory rate 18. Lungs: Clear to auscultation bilaterally. Heart: S1 and S2. Regular rate and rhythm. Abdomen: Firm uterus, -1 below the umbilicus. Extremities: No obvious calf pain, or peripheral edema. LABORATORY DATA: White cell count 9.5, hemoglobin 11.6, compared to predelivery hemoglobin of 11.3, which was done on 04/21/2020 with platelets of 166. CONDITION ON DISCHARGE COMPARED TO CONDITION ON ADMISSION: Improved. DISCHARGE INSTRUCTIONS: 1. Diet as tolerated. 2. Activity: No lifting more than 20 pounds. No sit-ups or straining. Pelvic rest for the next 6 weeks with immediate return to fertility discussed with the patient. Reasons to return or go to the emergency room were discussed with the patient in detail including, but not limited to temperature greater than 100.4, foul- smelling discharge, red hot tender breasts, or increased vaginal bleeding. DISCHARGE MEDICATIONS: 1. [id number] ibuprofen for pain. 2. vitamins while breast feeding. FOLLOWUP: 6 weeks for . I did discuss with the patient and her reason for returning to emergency room in regard to the as well, importance of followup and ramifications of not doing so, and we will make a followup for her baby on approximately 3 days from now. Sooner if need be. [facility] /[id number]
[2020-04-22] MEDS ORDERED: fentaNYL 100 MCG/2 ML SDV ITHECAL ONE (09:54)
[2020-04-22] MEDS ORDERED: EPINEPHrine 1 MG/1 ML Amp ONE (09:54)
== END 2020-04-22 09:55 | disposition home or self-care (01) | DRG 807 ==
LOC: DL.OBCHECK 16:34 → DL.OB 18:10 → OBSVTOIN 04-20 05:40
PROVIDERS: ADMIT Family Medicine; ATTEND Family Medicine
PROC: 3E0R3BZ Introduction of Anesthetic Agent into Spinal Canal, Percutaneous Approach (ICD-10-PCS; principal; 2020-04-20)
PROC: 4A1HXCZ Monitoring of Products of Conception, Cardiac Rate, External Approach (ICD-10-PCS; principal; 2020-04-20)
PROC: 3E033VJ Introduction of Other Hormone into Peripheral Vein, Percutaneous Approach (ICD-10-PCS; principal; 2020-04-20)
PROC: 10907ZC Drainage of Amniotic Fluid, Therapeutic from Products of Conception, Via Natural or Artificial Opening (ICD-10-PCS; principal; 2020-04-20)
PROC: 10E0XZZ Delivery of Products of Conception, External Approach (ICD-10-PCS; principal; 2020-04-20)
DX: O99.824 Streptococcus B carrier state complicating childbirth (principal); Z37.0 Single live birth; O99.52 Diseases of the respiratory system complicating childbirth; J45.909 Unspecified asthma, uncomplicated; O69.81X0 Labor and delivery complicated by cord around neck, without compression, not applicable or unspecified; O70.0 First degree perineal laceration during delivery; Z3A.37 37 weeks gestation of pregnancy; Z79.51 Long term (current) use of inhaled steroids; Z79.899 Other long term (current) drug therapy; Z87.59 Personal history of other complications of pregnancy, childbirth and the puerperium; Z90.89 Acquired absence of other organs; Z67.40 Type O blood, Rh positive; Z20.828 Contact with and (suspected) exposure to other viral communicable diseases
CPT/HCPCS: 36415; 59025; 59409; 82274; 85027; 86850; 86900; 86901; A9270-GY; J0171; J2405; J2540; J2590; J3010; J7120; U0002

== ENCOUNTER 2022-05-14 13:10 | Emergency (ER) | payer BC, OTHER, SELFPAY ==
[2022-05-14 13:27] VITALS: BP 130/91; PULSE 99
== END 2022-05-14 14:23 | disposition home or self-care (01) ==
LOC: DL.ED 13:10
DX: J38.3 Other diseases of vocal cords (principal); J45.909 Unspecified asthma, uncomplicated; Z79.899 Other long term (current) drug therapy
CPT/HCPCS: 99283

== ENCOUNTER 2023-06-11 06:45 | Inpatient (IN) | payer BC ==
[~2023-06-11 06:45] MED LIST: Lactated Ringers 1,000 ML IV ONE; Lidocaine 1% 30 ML SDV INJECT ONE; Penicillin G Potassium 5 MILLUNITS in Sodium Chloride 0.9% 100 ML IV ONE
[2023-06-11] MEDS ORDERED: Penicillin G Potassium 5,000,000 Unit Vial ONE (07:15)
[2023-06-11 07:24] LABS: HEMATOCRIT 36.3 % (37.0-47.0); HEMOGLOBIN 12.2 g/dL (12.0-16.0); MEAN CORPUSCULAR HEMOGLOBIN 30.7 pg (27.0-34.0); MEAN CORPUSCULAR HGB CONC 33.6 g/dL (33.0-35.0); MEAN CORPUSCULAR VOLUME 91.4 fL (80-100); RED BLOOD CELL COUNT 3.97 10^6/uL (4.2-5.4); WHITE BLOOD CELL COUNT,WBC 9.5 10^3/uL (5.0-10.0)
[2023-06-11] MEDS: Oxytocin/Normal Saline 30 UNIT/500 ML BAG IV SCH ×2 (07:55→15:10)
[2023-06-11] MEDS ORDERED: Methylergonovine 0.2 MG/1 ML Amp IM PRN (08:00)
[2023-06-11] MEDS ORDERED: Ondansetron 4 MG/2 ML SDV IVPUSH PRN (08:00)
[2023-06-11] MEDS ORDERED: Penicillin G Potassium 5 MILLUNITS in Sodium Chloride 0.9% 100 ML IV ONE (08:00)
[2023-06-11] MEDS ORDERED: Sodium Chloride 0.9% 10 ML Syringe FLUSH PRN ×2 (08:00→14:11)
[2023-06-11] MEDS ORDERED: Tranexamic Acid 1,000 MG in Sodium Chloride 0.9% 100 ML IV PRN (08:00)
[2023-06-11] MEDS ORDERED: Lactated Ringers 1,000 ML IV SCH (08:00)
[2023-06-11] MEDS ORDERED: Carboprost Tromethamine 250 MCG/1 ML Amp IM PRN (08:00)
[2023-06-11] MEDS ORDERED: Oxytocin/Normal Saline 30 UNIT/500 ML BAG IV SCH (08:00)
[2023-06-11] MEDS ORDERED: Misoprostol 400 MCG (4 X 100 MCG TAB) RECTAL PRN (08:00)
[2023-06-11] MEDS ORDERED: Bupivacaine 0.25% 10 ML SDV ONE (10:14)
[2023-06-11] MEDS ORDERED: fentaNYL 100 MCG/2 ML SDV ONE (10:14)
[2023-06-11] MEDS: Penicillin G Potassium 3 MILLUNITS in Sodium Chloride 0.9% 100 ML IV SCH ×3 (10:49→16:18)
[2023-06-11] MEDS ORDERED: Phenylephrine HCl In 0.9% NaCl 1 MG/10 ML Syringe IVPUSH PRN (10:50)
[2023-06-11] MEDS ORDERED: ePHEDrine 50 MG/ML SDV IVPUSH PRN (10:50)
[2023-06-11] MEDS ORDERED: Ropivacaine 200 MG in Premix Bag 1 BAG EPIDUR SCH (11:00)
[2023-06-11] MEDS ORDERED: Zolpidem 5 MG Tab PO PRN (14:11)
[2023-06-11] MEDS ORDERED: Benzocaine/Menthol 20%-0.5% Spray 78 GM Cannister TOP PRN (14:11)
[2023-06-11] MEDS ORDERED: Docusate Sodium 100 MG Cap PO PRN (14:11)
[2023-06-11] MEDS ORDERED: Simethicone 80 MG Tab.Chew PO PRN (14:11)
[2023-06-11] MEDS ORDERED: Witch Hazel Medicated Pads 100/Jar TOP PRN (14:11)
[2023-06-11] MEDS ORDERED: Oxytocin 10 Units/1 ML SDV IM PRN (14:11)
[2023-06-11] MEDS: Ibuprofen 800 MG Tab PO PRN (16:47)
[2023-06-11] MEDS: Acetaminophen 325 MG Tab PO PRN (23:17)
[2023-06-12] MEDS: Acetaminophen 325 MG Tab PO PRN ×2 (02:59→08:06)
[2023-06-12] MEDS: Ibuprofen 800 MG Tab PO PRN ×2 (03:54→12:20)
[2023-06-12 06:31] LABS: HEMATOCRIT 34.7 % (37.0-47.0); HEMOGLOBIN 11.4 g/dL (12.0-16.0); MEAN CORPUSCULAR HEMOGLOBIN 30.4 pg (27.0-34.0); MEAN CORPUSCULAR HGB CONC 32.9 g/dL (33.0-35.0); MEAN CORPUSCULAR VOLUME 92.5 fL (80-100); RED BLOOD CELL COUNT 3.75 10^6/uL (4.2-5.4)
[2023-06-12] MEDS ORDERED: Ferrous Sulfate 325 MG Tab PO SCH (08:00)
[2023-06-12] MEDS ORDERED: Prenatal Multivitamin with Calcium/Folic Acid/Iron Tab PO SCH (09:00)
[2023-06-12 16:29] VITALS: BP 115/76; PULSE 77
== END 2023-06-12 15:30 | disposition home or self-care (01) | DRG 560 ==
LOC: DL.OB 06:45 → OBSVTOIN 13:51
PROVIDERS: ADMIT Family Medicine; ATTEND Family Medicine
PROC: 10E0XZZ Delivery of Products of Conception, External Approach (ICD-10-PCS; principal; 2023-06-11)
PROC: 10907ZC Drainage of Amniotic Fluid, Therapeutic from Products of Conception, Via Natural or Artificial Opening (ICD-10-PCS; 2023-06-11)
PROC: 3E0R3BZ Introduction of Anesthetic Agent into Spinal Canal, Percutaneous Approach (ICD-10-PCS; 2023-06-11)
PROC: 00HU33Z Insertion of Infusion Device into Spinal Canal, Percutaneous Approach (ICD-10-PCS; 2023-06-11)
PROC: 3E0P7VZ Introduction of Hormone into Female Reproductive, Via Natural or Artificial Opening (ICD-10-PCS; 2023-06-11)
DX: O99.344 Other mental disorders complicating childbirth (principal); Z37.0 Single live birth; O99.52 Diseases of the respiratory system complicating childbirth; J45.30 Mild persistent asthma, uncomplicated; O99.824 Streptococcus B carrier state complicating childbirth; F32.9 Major depressive disorder, single episode, unspecified; F41.1 Generalized anxiety disorder; O69.81X0 Labor and delivery complicated by cord around neck, without compression, not applicable or unspecified; O71.82 Other specified trauma to perineum and vulva; O62.2 Other uterine inertia; Z90.89 Acquired absence of other organs; Z3A.39 39 weeks gestation of pregnancy
CPT/HCPCS: 36415; 51701; 59409; 85027; 86850; 86900; 86901; A9270-GY; J2405; J2540; J2590; J3490; J7120